=== PATIENT | female | born 1965 | race Caucasian/White ===

== ENCOUNTER 2016-12-22 10:54 | Observation (INO) | payer OTHER ==
[~2016-12-22] VITALS: Ht 152.4 cm; Wt 48.6 kg
[2016-12-22] MEDS ORDERED: SODIUM CHLORIDE 0.9% 1,000 ML IV ONE (11:22)
[2016-12-22] MEDS ORDERED: SODIUM CHLORIDE FLUSH 10ML SYR IVF ONE (11:30)
[2016-12-22] MEDS ORDERED: SODIUM CHLORIDE 0.9% 1,000ML IVBOLUS ONE (11:30)
[2016-12-22] MEDS ORDERED: UNK ANTIDEPRESSANT PO (12:24)
[2016-12-22] MEDS ORDERED: ARTHRITIS MED PO (12:24)
[2016-12-22] MEDS ORDERED: FIBROMYALGIA MED PO (12:24)
[2016-12-22 12:51] LABS: ASPARTATE AMINO TRANSFERASE 16 U/L (15-37); BLOOD UREA NITROGEN 21 mg/dL (7-18)
[2016-12-22 12:56] LABS: ACETAMINOPHEN 4 mcg/mL (10-30)
[2016-12-22 13:01] LABS: IS PT STATUS REG ER OR PRE ER? YES
[2016-12-22 13:02] LABS: DAU SCREEN DISCLAIMER
[2016-12-22] MEDS ORDERED: SODIUM CHLORIDE FLUSH 10ML SYR IVF PRN (14:30)
[2016-12-22] MEDS ORDERED: DOCUSATE 100 MG CAPSULE PO PRN (16:00)
[2016-12-22] MEDS ORDERED: ONDANSETRON ODT 4 MG PO PRN (16:00)
[2016-12-22] MEDS ORDERED: LORazepam 1MG TABLET PO PRN (16:00)
[2016-12-22] MEDS ORDERED: ENALAPRILAT 1.25 MG/ML, 2ML IVPush PRN (16:00)
[2016-12-22] MEDS ORDERED: ZOLPIDEM 5MG TABLET PO PRN (16:00)
[2016-12-22 16:31] VITALS: BP 115/75
[2016-12-22] MEDS: ENOXAPARIN 40 MG/0.4 ML SQ SCH (16:45)
[2016-12-22] MEDS ORDERED: GADOBUTROL 7.5 MMOL/7.5 ML PFS ONE (18:48)
[2016-12-22 19:14] VITALS: BP 119/73
[2016-12-23 01:11] VITALS: BP 123/72
[2016-12-23] MEDS: ASPIRIN 325 MG TABLET EC PO SCH (05:36)
[2016-12-23 08:00] VITALS: BP 114/66
[2016-12-23] MEDS: CITALOPRAM 20 MG TABLET PO SCH (08:12)
[2016-12-23] MEDS: ACETAMINOPHEN 325 MG TABLET PO PRN ×2 (08:32→21:02)
[2016-12-23] MEDS: WELLBUTRIN PO SCH (09:00)
[2016-12-23 14:00] VITALS: BP 125/72
[2016-12-23] MEDS: ENOXAPARIN 40 MG/0.4 ML SQ SCH (17:11)
[2016-12-23 18:51] VITALS: BP 101/64
[2016-12-24 01:08] VITALS: BP 101/63
[2016-12-24] MEDS: ASPIRIN 325 MG TABLET EC PO SCH (06:19)
[2016-12-24 08:10] VITALS: BP 122/71
[2016-12-24] MEDS: CITALOPRAM 20 MG TABLET PO SCH (08:22)
[2016-12-24] MEDS: WELLBUTRIN PO SCH (08:23)
[2016-12-24] MEDS ORDERED: ASPI-650 PO (08:34)
[2016-12-24] MEDS ORDERED: CITA20TA9 PO (08:34)
[2016-12-24] MEDS ORDERED: PNEUMOCOCCAL VACC.PER PHARMACY IM ONE (11:00)
== END 2016-12-24 14:27 | disposition home or self-care (01) ==
LOC: EDBD 10:54 → ED 12:43 → INTOOBSV 14:01 → EDIP 14:01 → 3NE 15:57
DX: R41.82 Altered mental status, unspecified (principal); G45.9 Transient cerebral ischemic attack, unspecified; E16.2 Hypoglycemia, unspecified; I10 Essential (primary) hypertension; G93.40 Encephalopathy, unspecified; R47.01 Aphasia; R55 Syncope and collapse; F17.210 Nicotine dependence, cigarettes, uncomplicated; Z90.710 Acquired absence of both cervix and uterus
CPT/HCPCS: 36415; 70450; 70553; 71010; 80053; 80061; 80307; 80329; 81003; 82140; 82607; 82746; 84439; 84443; 84484; 85025; 92610; 93005; 93306; 93880; 96360; 96372; 97116; 97162; 97166; 99285; A9585; G0378; J1650; J7030; G0480

== ENCOUNTER 2017-09-22 08:35 | Emergency (ER) | payer OTHER ==
[~2017-09-22] VITALS: Ht 152.4 cm; Wt 55.4 kg
[~2017-09-22 08:35] MED LIST: ARTHRITIS MED PO; ASPI-650 PO; BUSP5TAB2 PO; CITA20TA9 PO; ESCI5TAB7 PO; FIBROMYALGIA MED PO; UNK ANTIDEPRESSANT PO
[2017-09-22 08:38] VITALS: BP 132/70
[2017-09-22] MEDS ORDERED: IBUPROFEN 200 MG TABLET PO ONE (09:30)
[2017-09-22] MEDS ORDERED: IBUPROFEN 200 MG TABLET ONE (09:32)
== END 2017-09-22 10:44 | disposition home or self-care (01) ==
LOC: ED 10:36
DX: S93.402A Sprain of unspecified ligament of left ankle, initial encounter (principal); X50.1XXA Overexertion from prolonged static or awkward postures, initial encounter; Y93.01 Activity, walking, marching and hiking; Y92.098 Other place in other non-institutional residence as the place of occurrence of the external cause; Y99.8 Other external cause status; Z86.73 Personal history of transient ischemic attack (TIA), and cerebral infarction without residual deficits; Z88.0 Allergy status to penicillin; Z90.710 Acquired absence of both cervix and uterus
CPT/HCPCS: 99284

== ENCOUNTER → 2018-05-20 | Outpatient (CLI) | payer OTHER | END | disposition home or self-care (01) | LOC: CFH 08:41 | PROVIDERS: ATTEND Nurse Practitioner | DX: Z12.31 Encounter for screening mammogram for malignant neoplasm of breast (principal) | CPT/HCPCS: 77063; 77067 ==